=== PATIENT | female | born 1945 | race Caucasian/White ===

== ENCOUNTER 2024-04-10 08:06 | Day surgery (SDC) | payer MEDICARE ==
[~2024-04-10 08:06] MED LIST: BETADINE 5% OPHTHALMIC 30 ML OP ONE; MOXIFLOXACIN 4 MG/0.8 ML VIAL IO ONE; TRIAMCINOLONE 15 MG/ML INJ INTRAOP ONE
[2024-04-10] MEDS ORDERED: Epinephrine Preservative Free 1 MG/ML IJ ONE (08:07)
[2024-04-10] MEDS ORDERED: Lactated Ringers 1,000 ML IV ONE (08:26)
[2024-04-10] MEDS: Lactated Ringers 1,000 ML IV SCH (08:39)
[2024-04-10] MEDS: TETRACAINE 0.5% STERI-UNIT SOL OP ONE ×2 (08:45→09:19)
[2024-04-10] MEDS: Ak-Dilate OPHTHALMIC*** 1.065 ML, Cyclogyl 1% OPHTH SOL 1.065 ML, GATIFLOXACIN 0.5% OPH... OP ONE (08:46)
[2024-04-10 09:19] LABS: ANION GAP 12.7 MEQ/L (5-15); Calcium 10.1 mg/dL (8.4-10.2); Creatinine 1 1.1 mg/dL (0.52-1.04); EST GLOMERULAR FILTRATION RATE 51.8 ML/MIN; Potassium 4.3 mmol/L (3.5-5.1)
[2024-04-10] MEDS ORDERED: Zofran 4 MG/2 ML VIAL IV PRN (10:30)
[2024-04-10] MEDS ORDERED: DIPRIVAN 200 MG/20 ML IV ONE (11:12)
[2024-04-10 11:41] VITALS: RESP 16; TEMP 97
[2024-04-10] MEDS: ACETAZOLAMIDE 250 MG TABLET PO ONE (11:45)
[2024-04-10 11:49] VITALS: O2SAT 97
[2024-04-10 11:55] VITALS: BP 144/73; PULSE 56
== END 2024-04-10 12:05 | disposition home or self-care (01) ==
LOC: SDC 08:06
PROVIDERS: ATTEND Ophthalmology
DX: H25.812 Combined forms of age-related cataract, left eye (principal); I10 Essential (primary) hypertension
CPT/HCPCS: 36415; 80048; 93005; 99100; C1780; J0171; J2704; A9270-GY